=== PATIENT | female | born 1965 | race American Indian/Alaskan Native ===

== ENCOUNTER 2016-10-10 08:46 | Outpatient (CLI) | payer BC ==
--- NOTE | 2016-10-10 15:55 | Mammography Report ---
Screening mammogram: Routine views are compared to prior examination in May 2012. There is an intermediate density fibroglandular pattern which is symmetrically distributed bilaterally. There is a 7 mm focal asymmetry in the lateral left breast not identified on prior study. With this exception the findings are unchanged. CAD used. Impression: Left asymmetry. Recommendation: Additional compression imaging of the left breast. Ultrasound, as needed. BI-RADS CATEGORY: 0 = Needs additional imaging evaluation ACR BI-RADS MAMMOGRAPHIC CODES: 0 = Needs additional imaging evaluation; 1 = Negative; 2 = Benign; 3 = Probably benign; 4 = Suspicious; 5 = Malignant; 6 = Known biopsy-proven malignancy COMMENT: 1. Dense breast tissue, i.e., adenosis, fibrocystic changes, etc., may obscure an underlying neoplasm. 2. Approximately 10% of cancers are not detected with mammography. 3. A negative mammography report should not delay biopsy if a clinically suspicious mass is present.
== END 2016-10-10 08:47 | disposition home or self-care (01) ==
LOC: SPVWC 08:46
PROVIDERS: ATTEND Nurse Practitioner Family
DX: Z12.31 Encounter for screening mammogram for malignant neoplasm of breast (principal)
CPT/HCPCS: 77067; G0202

== ENCOUNTER 2016-11-07 09:28 | Outpatient (CLI) | payer BC ==
--- NOTE | 2016-11-07 11:03 | Ultrasound Report ---
LEFT DIGITAL DIAGNOSTIC MAMMOGRAM and LEFT BREAST ULTRASOUND: 11/07/16 09:28:00 CLINICAL: Recalled for asymmetry. COMPARISON:10/10/16 screening FINDINGS: Spot compression views demonstrate a persistent 6 mm upper outer focal asymmetry with indistinct margins. Ultrasound of the upper outer left breast was performed and demonstrated an oval slightly irregular cyst at 2 o'clock 10 cm from the nipple. The wall is relatively thick. It measures approximately 5 x 3 x 2 mm and correlates with the mammographic density. IMPRESSION: A probably benign 5 mm cyst at 2 o'clock 10 cm from the nipple. The cyst appears to correlate with a persistent mammographic asymmetry. BI-RADS CATEGORY: 3 - - Probably Benign RECOMMENDATION: Three-month followup left mammogram and left breast ultrasound if needed. ACR BI-RADS MAMMOGRAPHIC CODES: 0 = Needs additional imaging evaluation; 1 = Negative; 2 = Benign; 3 = Probably benign; 4 = Suspicious; 5 = Malignant; 6 = Known biopsy-proven malignancy COMMENT: 1. Dense breast tissue, i.e., adenosis, fibrocystic changes, etc., may obscure an underlying neoplasm. 2. Approximately 10% of cancers are not detected with mammography. 3. A negative mammography report should not delay biopsy if a clinically suspicious mass is present. COMMENT: Patient follow-up letters are generated via our [employer] application.
== END 2016-11-07 09:29 | disposition home or self-care (01) ==
LOC: SPVWC 09:28
PROVIDERS: ATTEND Internal Medicine
DX: N60.02 Solitary cyst of left breast (principal)
CPT/HCPCS: 76642; G0206

== ENCOUNTER 2017-01-20 14:02 | Outpatient (CLI) | payer BC ==
--- NOTE | 2017-01-20 14:29 | Mammography Report ---
Left mammogram: This exam serves as a short-term followup to a probably benign nodule evaluated in October with both mammography and ultrasound. The nodule appears unchanged on mammography at this time. Impression: Probably benign stable left nodule. Recommendation: Repeat mammogram in 6 months; ultrasound as needed. BI-RADS CATEGORY: 3 = Probably benign ACR BI-RADS MAMMOGRAPHIC CODES: 0 = Needs additional imaging evaluation; 1 = Negative; 2 = Benign; 3 = Probably benign; 4 = Suspicious; 5 = Malignant; 6 = Known biopsy-proven malignancy COMMENT: 1. Dense breast tissue, i.e., adenosis, fibrocystic changes, etc., may obscure an underlying neoplasm. 2. Approximately 10% of cancers are not detected with mammography. 3. A negative mammography report should not delay biopsy if a clinically suspicious mass is present.
== END 2017-01-20 14:03 | disposition home or self-care (01) ==
LOC: SPVWC 14:02
PROVIDERS: ATTEND Internal Medicine
DX: N60.02 Solitary cyst of left breast (principal); N63.20 Unspecified lump in the left breast, unspecified quadrant
CPT/HCPCS: G0206-LT

== ENCOUNTER 2019-03-29 08:17 | Outpatient (CLI) | payer BC ==
--- NOTE | 2019-03-29 14:31 | Mammography Report ---
DIGITAL SCREENING MAMMOGRAM WITH CAD, 03/29/2019 INDICATION: Routine screening mammography. TECHNIQUE: Digital bilateral 2D mammography was obtained in the craniocaudal and mediolateral obliq ue projections. This examination was interpreted with the benefit of Computer-Aided Detection analysi s. COMPARISON: 03/26/2018 and 10/10/2016 and 06/03/2012 FINDINGS: Breast Density: There are scattered areas of fibroglandular density. There is no evidence of dominant mass, suspicious calcifications or architectural distortion in eithe r breast. IMPRESSION: No mammographic evidence of malignancy. Follow up recommendation: Routine yearly BI-RADS Category 1: Negative. A "normal" or negative report should not discourage follow up or biopsy of a clinically significant f inding. A written summary of these findings will be mailed to the patient. The patient will be entered into a mammography reporting system which will generate a reminder letter for the patient's next appointmen t at the appropriate interval. The [employer] recommends yearly mammograms starting at age 40 and continuing as l lu as a woman is in good health. Breast MRI is recommended for women with an approximate 20-25% or greater lifetime risk of breast cancer, including women with a strong family history of breast or ova kena cancer or who have been treated for Hodgkin's disease. Signer Name: Jose Guadalupe Us MD Signed: 03/29/2019 2:27 PM Workstation Name: [id number]
== END 2019-03-29 08:18 | disposition home or self-care (01) ==
LOC: SPVWC 08:17
PROVIDERS: ATTEND Internal Medicine
DX: Z12.31 Encounter for screening mammogram for malignant neoplasm of breast (principal); N64.89 Other specified disorders of breast
CPT/HCPCS: 77067